=== PATIENT | female | born 1960 | race Caucasian/White ===

== ENCOUNTER 2019-01-10 16:04 | Inpatient (IN) | payer OTHER ==
[~2019-01-10] VITALS: Ht 170.2 cm; Wt 135.2 kg
[~2019-01-10 16:04] MED LIST: ASPIR 8181 MG PO; AZITHROMYCIN 2250 MG PO; CARDIZEM CD120 MG PO; CELEBREX; DELTASONE20 MG PO; DUONEB 2.5-0.5 M3 ML INH; ELIQUIS5 MG PO; FLECAINIDE ACET50 M1 PO; GENTAK 3 MG/M3 MG/M1 OP; GLUCOPHAGE XR500 MG PO; METFORMIN HCL500 MG PO; NEBULIZER MISCELL; PERCOCET 5-3251 EACH PO; PREDNISONE50 MG PO; SORINE 80 MG TA80 MG PO; VICODIN
[2019-01-10 16:56] VITALS: BP 146/81
[2019-01-10 17:44] LABS: ABSOLUTE NEUTROPHILS 9.2 thou/uL (1.4-8.2); BASOPHILS 0.7 % (0.0-2.0); HEMATOCRIT 44.4 % (37.0-47.0); HEMOGLOBIN 14.7 gm/dL (12.0-15.0); MCHC 33.1 g/dL (28.0-37.0); MCV 87.7 fL (80.0-100.0); MONOCYTES 5.8 % (1.0-8.0); PLATELET COUNT 255 thou/uL (150-400); POLYS 63.5 % (36.0-66.0); RBC 5.06 mil/uL (4.20-5.00); RDW 13.5 % (10.5-14.5); WBC 14.5 thou/uL (4.0-11.0)
--- NOTE | 2019-01-10 17:53 | NUR ---
PT A DIRECT PATIENT FROM DR. THOMPSON OFFICE. DR. CROWLEY NOTIFIED. ADMISSION HX AND ASSESSMENT COMPLETED. VSS. PT ALERT AND ORIENTED. ORDERS NOTED. ORIENTED TO THE ROOM AND THE CALL LIGHT SYSTEM. NO CONCERNS AT THIS TIME. WILL CONTINUE TO MONITOR.
[2019-01-10 17:58] LABS: ALBUMIN 3.5 g/dL (3.4-5.0); CREATININE 0.8 mg/dL (0.6-1.0); MAGNESIUM 1.9 mg/dL (1.8-2.4); POTASSIUM 3.8 mmol/L (3.5-5.1); TOTAL BILIRUBIN 0.6 mg/dL (<0.1-1.0); TOTAL PROTEIN 7.7 g/dL (6.4-8.2)
[2019-01-10 20:08] VITALS: BP 116/77
[2019-01-10 20:18] VITALS: BP 161/64
[2019-01-10 23:00] VITALS: BP 102/77
[2019-01-11 00:26] VITALS: BP 115/63
[2019-01-11 04:16] VITALS: BP 111/78
--- NOTE | 2019-01-11 05:05 | NUR ---
ASSESSMENT DOCUMENTED.PT BEEN RESTING IN NO ACUTE DISTRESS.VSS/A/OX4.PT STARTED ON CARDIZEM DRIP DUE TO HR BEING IN 130S AND SUSTAINING EVEN AFTER BEING GIVEN SOTALOL ORDERED.CARDIZEM INFUSING AT 5MG/HR AT THIS TIME.VSS.POC TO HAVE TALI W/ABLATION TODAY.WILL CONT TO MONITOR PER POC.
--- NOTE | 2019-01-11 09:23 | TEE ---
[facility] [address] [place] [address] TRANSESOPHAGEAL ECHOCARDIOGRAM Name: CRISTAL BECK Room #: 217-P [facility] IN .R.#: [id number] Admission: 01/10/19 Attend Phys: Angus Terrazas Discharge: Date of : 62 Report #: [id number] THIS REPORT FOR: //name// APPROVED REPORT Study performed: 01/11/2019 07:56:19 EXAM: Transesophageal Echocardiogram with Doppler and Cardioversion Patient Location: landscaping and groundskeeping laborer holding Room #: 9 Status: routine BSA: 2.39 HR: 89 bpm BP: 105/67 mmHg Rhythm: Atrial Fibrillation Other Information Study Quality: Excellent Indications Atrial Fibrillation Echo Enhancing Agent Indication: Rule out Shunt Agent(s) / Amount(s) Used: Agitated Saline 7 cc Procedure After obtaining informed consent, patient underwent transesophageal echo in the Biological Science Technician Fish Holding. Type of Sedation : Conscious Sedation Sedation was administered by Nurse. Sedation was achieved intravenously with: Versed (5 mg) Fentanyl (150 mcg) Transesophageal probe was inserted and advanced into esophagus without difficulty by Laurent Ga MD. Echo enhancement indication: R/O Septal defect. Echo enhancement agent administered: Agitated Saline The TALI was performed without complications. Synchronized Cardioversion acheived with 200 Joules after 1 attempt(s). Rhythm following Synchronized Cardioversion: Normal Sinus Rhythm Throughout the procedure, the blood pressure, pulse oximetry, cardiac rhythm, and rate were monitored. The patient tolerated the procedure without adverse effects. Recovery [facility] [address] [place] [address] TRANSESOPHAGEAL ECHOCARDIOGRAM Name: CRISTAL BECK Room #: 217-P [facility] IN M.R.#: [id number] Admission: 01/10/19 Attend Phys: Angus Terrazas Discharge: Date of : 62 Report #: [id number] from conscious sedation was uneventful and vital signs were stable. Left Ventricle The left ventricle is normal size. There is normal LV segmental wall motion. There is normal left ventricular wall thickness. The left ventricular systolic function is normal. The left ventricular ejection fraction is within the normal range. LVEF is 55-60%. Right Ventricle The right ventricle is normal size. The right ventricular systolic function is normal. Atria Left atrium is dilated. No thrombus is visualized in the left atrium or appendage. Patent foramen ovale is present with bidirectional shunting Right atrium is dilated. Aortic Valve The aortic valve is normal in structure. No aortic regurgitation is present. There is no aortic valvular stenosis. Mitral Valve The mitral valve is normal in structure. Mild mitral regurgitation. No evidence of mitral valve stenosis. Tricuspid Valve The tricuspid valve is normal in structure. Mild tricuspid regurgitation. Pulmonic Valve The pulmonary valve is normal in structure. There is no pulmonic valvular regurgitation. Great Vessels The aortic root is normal in size. The ascending aorta is normal in size. IVC is normal in size and collapses >50% with inspiration. Pericardium There is no pericardial effusion. <Conclusion> The left ventricular systolic function is normal. There is normal LV segmental wall motion. LVEF is 55-60%. [facility] [address] [place] [address] TRANSESOPHAGEAL ECHOCARDIOGRAM Name: CRISTAL BECK Room #: 217-P [facility] IN ..#: [id number] Admission: 01/10/19 Attend Phys: Angus Terrazas Discharge: Date of : 62 Report #: [id number] Both atria are severely dilated. No thrombus is visualized in the left atrium or appendage. Patent foramen ovale is present with bidirectional shunting The aortic valve is normal in structure. No aortic regurgitation or stenosis The mitral valve is normal in structure. Mild mitral regurgitation. There is no pericardial effusion. Successful cardioversion of atrial fibrillation to sinus rhythm following a single biphasic 200 J synchronous shock <ELECTRONICALLY SIGNED> By: Laurent Ga MD, FACC 01/11/19922 2 2 Laurent Ga MD, FACC /INF
--- NOTE | 2019-01-11 09:28 | NUR ---
PT AWAKE AND ALERT. TAKING SIPS OF WATER WITHOUT DIFFICULTIES. CONTINUES IN NSR. CARDIZEM DRIP STOPPED AFTER SUCCESSFUL CARDIOVERSION PER OK BY DR. ROMANO.
--- NOTE | 2019-01-11 10:47 | NUR ---
0940-REPORT CALLED TO CCU NURSE. INSTRUCTED TO START PRADAXA 150MG TODAY AND MAKE SURE SHE GETS 2 DOSES TODAY. INSTRUCTED TO CONTINUE WITH SOTALOL. SHE VERBALIZED UNDERSTANDING. PT TRANSFERRED BACK TO CCU VIA COT.
[2019-01-11 12:00] VITALS: BP 103/61
[2019-01-11 14:55] LABS: URINE BILIRUBIN NEGATIVE (Negative); URINE BLOOD NEGATIVE (Negative); URINE CLARITY CLEAR; URINE COLOR YELLOW; URINE GLUCOSE-RANDOM* NEGATIVE (Negative); URINE KETONES NEGATIVE (Negative); URINE LEUKOCYTES NEGATIVE (Negative); URINE NITRITE NEGATIVE (Negative); URINE PROTEIN (DIPSTICK) NEGATIVE (Negative); URINE SPECIFIC GRAVITY >= 1.030 (1.005-1.035); URINE UROBILINOGEN 0.2 E.U./dl (0.2-1.0)
[2019-01-11 16:00] VITALS: BP 110/74
--- NOTE | 2019-01-11 17:24 | NUR ---
ASSESSMENT CHARTED. PT ALERT AND ORIENTED. VSS. DENIED HAVING PAIN OR DISCOMFORT. HAD TALI THIS MORNING. NSR ON TELE. NO CONCERNS AT THIS TIME. WILL CONTINUE TO MONITOR.
[2019-01-11 20:13] VITALS: BP 121/55
[2019-01-12 00:14] VITALS: BP 138/53
--- NOTE | 2019-01-12 01:59 | NUR ---
PATIENTS CARES WAS ASSUMED AT SHIFT CHANGE. PATIENT WAS ASSESSED AND MEDS WERE PASSED. WHILE I WAS VISITING WITH THIS PATIENT. THE CONVERSATION WAS ABOUT HER WANTING A GASTRIC BYPASS. SHE IS PRESNTLY DOING CLASSES WITH DOCTOR CHEIKH M.D. AND HIS GROUP AT [facility]. WE ALSO TALKED ABOUT HORMONE REPLACEMEN. WILL PULL INFORMATION AND GIVE IT TO THE PATIENT.HOURLY ROUNDING WAS DONE AND THE BED IS IN A LOW AND LOWED POSITION
[2019-01-12 03:13] VITALS: BP 120/67
[2019-01-12 04:05] LABS: HEMATOCRIT 38.7 % (37.0-47.0); MCH 29.1 pg (26.0-34.0); MCHC 32.6 g/dL (28.0-37.0); MCV 89.3 fL (80.0-100.0); RBC 4.34 mil/uL (4.20-5.00); RDW 13.9 % (10.5-14.5); WBC 13.5 thou/uL (4.0-11.0)
[2019-01-12 04:19] LABS: HEMOGLOBIN 12.6 gm/dL (12.0-15.0)
[2019-01-12 07:30] VITALS: BP 126/65
[2019-01-12] MEDS ORDERED: SORINE 80 MG TA80 M1 PO (08:29)
[2019-01-12] MEDS ORDERED: PRADAXA150 MG PO (08:29)
--- NOTE | 2019-01-12 09:15 | EKG ---
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: Gilmer RUSSELL : 1960 Requested By: Vaughn Green Order Number: [id number] MD: Laurent Ga Measurements Intervals [place] Rate: 59 P: 58 CA: 159 QRS: 59 QRSD: 98 T: 78 QT: 624 QTc: 619 Interpretive Statements Sinus bradycardia Borderline abnrm T, anterolateral leads Prolonged QT interval No previous ECG available for comparison Electronically Signed On 01-12-2019 9:15:29 UPHOLSTERY HANDLER by Laurent Ga [email or web address] <ELECTRONICALLY SIGNED> By: Laurent Ga MD, [facility] 01/12/19 0915 1158 1158 Laurent Ga MD, [facility] /EPI
--- NOTE | 2019-01-12 09:26 | EKG ---
[place] [address] [facility] [place] [address] ELECTROCARDIOGRAM REPORT Name: CRISTAL BECK Room #: 217-P ADM IN M.R.#: [id number] Admission: 01/10/19 Attend Phys: Angus Centeno Discharge: Date of : 62 Report #: [id number] THIS REPORT FOR: //name// [facility] Test Date: 2019-01-12 Test Time: 08:23:18 Pat Name: CRISTAL BECK Department: Room: 217 P Gender: F Computational Chemist: ELEN : 1960 Requested By: Vaughn Green Order Number: [id number] MD: Laurent Ga Measurements Intervals [place] Rate: 63 P: 53 OK: 156 QRS: 57 QRSD: 101 T: 54 QT: 423 QTc: 434 Interpretive Statements Sinus rhythm Nonspecific T wave abnormality No previous ECG available for comparison Electronically Signed On 01-12-2019 9:26:19 SET MAKING MACHINE OPERATOR by Laurent Ga [email or web address] <ELECTRONICALLY SIGNED> By: Laurent Ga MD, [facility] 01/12/19925 2 2 Laurent Ga MD, FACC /EPI
[2019-01-12 09:40] VITALS: BP 126/65
--- NOTE | 2019-01-12 10:51 | NUR ---
ASSUMED CARE AT 0700. PT A&OX4. CARDIOLOGY ROUNDED WELL HOSPITALIST AND D/C ORDERS GIVEN. IV REMOVED. PT GIVEN PRESCRIPTIONS WELL D/C PAPERWORK. PT STATES NO QUESTIONS AT THIS TIME.
== END 2019-01-12 11:27 | disposition home or self-care (01) | DRG 309 ==
LOC: 3N 16:04 → 2N 16:10 → ENTRNSPT 01-12 10:19 → EDTRNSPTSTS 01-12 10:30 → 2N 01-12 11:27
PROVIDERS: Nurse Practitioner; ADMIT Hospitalist
PROC: B24BZZ4 Ultrasonography of Heart with Aorta, Transesophageal (ICD-10-PCS; principal; 2019-01-11)
PROC: 5A2204Z Restoration of Cardiac Rhythm, Single (ICD-10-PCS; principal; 2019-01-11)
DX: I48.0 Paroxysmal atrial fibrillation (principal); Z68.42 Body mass index [BMI] 45.0-49.9, adult; G47.33 Obstructive sleep apnea (adult) (pediatric); J44.9 Chronic obstructive pulmonary disease, unspecified; M19.90 Unspecified osteoarthritis, unspecified site; G89.29 Other chronic pain; M54.9 Dorsalgia, unspecified; I27.20 Pulmonary hypertension, unspecified; R73.03 Prediabetes; I34.0 Nonrheumatic mitral (valve) insufficiency; E66.01 Morbid (severe) obesity due to excess calories; Z79.82 Long term (current) use of aspirin; Z90.710 Acquired absence of both cervix and uterus; Z90.49 Acquired absence of other specified parts of digestive tract; Z87.891 Personal history of nicotine dependence; Z79.899 Other long term (current) drug therapy
CPT/HCPCS: 10081; 10797

== ENCOUNTER → 2020-04-08 | Outpatient (CLI) | payer OTHER ==
[~2020-04-08] MED LIST changes: +PRADAXA150 MG PO; +SORINE 80 MG TA80 M1 PO
== END ==
LOC: SJCVC 11:46
PROVIDERS: ATTEND Internal Medicine Cardiovascular Disease
DX: R94.31 Abnormal electrocardiogram [ECG] [EKG] (principal); R00.1 Bradycardia, unspecified; I48.3 Typical atrial flutter; I48.0 Paroxysmal atrial fibrillation; G47.33 Obstructive sleep apnea (adult) (pediatric); I10 Essential (primary) hypertension; R73.03 Prediabetes; M81.0 Age-related osteoporosis without current pathological fracture; M06.9 Rheumatoid arthritis, unspecified; Z98.84 Bariatric surgery status; Z90.49 Acquired absence of other specified parts of digestive tract; Z90.710 Acquired absence of both cervix and uterus; Z98.890 Other specified postprocedural states; Z68.42 Body mass index [BMI] 45.0-49.9, adult; Z88.8 Allergy status to other drugs, medicaments and biological substances; Z79.899 Other long term (current) drug therapy; Z87.891 Personal history of nicotine dependence; Z82.49 Family history of ischemic heart disease and other diseases of the circulatory system

== ENCOUNTER → 2020-04-18 | Outpatient (CLI) | payer OTHER | LOC: LAB 07:59 | PROVIDERS: ATTEND Internal Medicine Cardiovascular Disease | DX: Z01.812 Encounter for preprocedural laboratory examination (principal); Z20.822 Contact with and (suspected) exposure to COVID-19 ==

== ENCOUNTER → 2020-04-18 | Outpatient (CLI) | payer OTHER ==
[~2020-04-18] MED LIST changes: +CELEBREX100 MG/1 C PO; +SOTALOL 120 MG120 M1 PO; +XARELTO20 MG PO
[2020-04-18 09:50] LABS: BASOPHILS 0.7 % (0.0-2.0); EOSINOPHILS 1.8 % (0.0-3.0); HEMATOCRIT 42.3 % (37.0-47.0); HEMOGLOBIN 13.9 gm/dL (12.0-15.0); LYMPHOCYTES 28.9 % (24.0-44.0); MCH 28.9 pg (26.0-34.0); MCHC 32.9 g/dL (28.0-37.0); MCV 87.7 fL (80.0-100.0); MONOCYTES 6.4 % (1.0-8.0); POLYS 62.2 % (36.0-66.0); RBC 4.82 mil/uL (4.20-5.00); RDW 13.8 % (10.5-14.5); WBC 9.6 thou/uL (4.0-11.0)
[2020-04-18 10:02] LABS: ALBUMIN 3.6 g/dL (3.4-5.0); CALCIUM 8.8 mg/dL (8.5-10.1); CREATININE 0.7 mg/dL (0.6-1.0); POTASSIUM 4.2 mmol/L (3.5-5.1); TOTAL BILIRUBIN 0.6 mg/dL (0.2-1.0); TOTAL PROTEIN 7.2 g/dL (6.4-8.2)
[2020-04-18 10:43] LABS: PLATELET COUNT 211 thou/uL (150-400)
== END ==
LOC: CAT 09:00
PROVIDERS: ATTEND Internal Medicine Cardiovascular Disease
DX: Z01.818 Encounter for other preprocedural examination (principal); I48.91 Unspecified atrial fibrillation; J84.10 Pulmonary fibrosis, unspecified; K76.89 Other specified diseases of liver; M47.814 Spondylosis without myelopathy or radiculopathy, thoracic region; M89.38 Hypertrophy of bone, other site; Z90.49 Acquired absence of other specified parts of digestive tract; Z88.8 Allergy status to other drugs, medicaments and biological substances

== ENCOUNTER 2020-04-23 06:27 | Observation (INO) | payer OTHER ==
[~2020-04-23] VITALS: Ht 170.2 cm; Wt 103.0 kg
[~2020-04-23 06:27] MED LIST changes: -CELEBREX100 MG/1 C PO; -SOTALOL 120 MG120 M1 PO; -XARELTO20 MG PO
[2020-04-23 07:34] LABS: ABSOLUTE NEUTROPHILS 4.1 thou/uL (1.4-8.2); BASOPHILS 0.5 % (0.0-2.0); EOSINOPHILS 2.7 % (0.0-3.0); HEMATOCRIT 41.8 % (37.0-47.0); HEMOGLOBIN 13.9 gm/dL (12.0-15.0); LYMPHOCYTES 31.7 % (24.0-44.0); MCH 28.9 pg (26.0-34.0); MCHC 33.3 g/dL (28.0-37.0); MCV 86.7 fL (80.0-100.0); MONOCYTES 9.8 % (1.0-8.0); POLYS 55.3 % (36.0-66.0); RBC 4.82 mil/uL (4.20-5.00); RDW 13.8 % (10.5-14.5); WBC 7.4 thou/uL (4.0-11.0)
[2020-04-23 07:35] VITALS: BP 149/89
[2020-04-23] MEDS ORDERED: SOTALOL 120 MG120 M1 PO ×2 (07:42)
[2020-04-23] MEDS ORDERED: XARELTO20 MG PO ×2 (07:43)
[2020-04-23] MEDS ORDERED: CELEBREX100 MG/1 C PO ×2 (07:44)
[2020-04-23 07:48] LABS: APTT 26.5 Seconds (24.5-32.8); PROTIME 11.4 Seconds (9.3-11.4)
[2020-04-23 07:51] LABS: CREATININE 0.8 mg/dL (0.6-1.0); POTASSIUM 3.7 mmol/L (3.5-5.1)
[2020-04-23 07:55] LABS: ALBUMIN 3.6 g/dL (3.4-5.0); TOTAL BILIRUBIN 0.6 mg/dL (0.2-1.0); TOTAL PROTEIN 7.4 g/dL (6.4-8.2)
[2020-04-23 08:56] LABS: PLATELET COUNT 194 thou/uL (150-400)
--- NOTE | 2020-04-23 13:51 | 2DMMODE ---
[address] [address] 2 D/M-MODE ECHOCARDIOGRAM Name: CRISTAL BECK Room #: REG ROSIO DiazBrodie#: [id number] Admission: 04/23/20 Attend Phys: Vaughn Green MD Discharge: Date of : 62 Report #: [id number] THIS REPORT FOR: cc: Carlota Mckeon Maggie M. DO Santiago, Patrick MD [facility] ~ APPROVED REPORT Study performed: 04/23/2020 13:26:16 EXAM: Limited 2D Echocardiogram Patient Location: Holding Status: stat BSA: 2.13 HR: 72 bpm BP: 149/89 mmHg Rhythm: NSR Other Information Study Quality: Good Indications Stat limited echo for chest pain status post Afib ablation. Rule out pericardial effusion. Left Ventricle The left ventricle is normal size. There is normal left ventricular wall thickness. Left ventricular systolic function is normal. LVEF is 50-55%. Right Ventricle The right ventricle is normal size. The right ventricular systolic function is normal. Atria Left atrium is dilated. The right atrium size is normal. Aortic Valve The aortic valve is normal in structure. Mitral Valve The mitral valve is normal in structure. Tricuspid Valve [address] [address] D/M-MODE ECHOCARDIOGRAM Name: CRISTAL BECK Room #: REG [facility]..#: [id number] Admission: 04/23/20 Attend Phys: Vaughn Green Discharge: Date of : 62 Report #: [id number] The tricuspid valve is normal in structure. Pericardium There is no pericardial effusion. <Conclusion> Normal left ventricular size/wall thickness Ejection fraction 55%, no obvious segmental wall motion abnormality Normal right ventricular size/function Mild left atrial enlargement Normal aortic/mitral/tricuspid valve structure No pericardial effusion <ELECTRONICALLY SIGNED> By: Stoney Joiner MD, FACC 04/23/20 1351 135 135 Stoney Joiner MD, FACC /INF
[2020-04-23 16:15] VITALS: BP 139/79
--- NOTE | 2020-04-23 17:43 | EKG ---
[address] [address] ELECTROCARDIOGRAM REPORT Name: CRISTAL BECK Room #: 214-[facility]#: [id number] Admission: 04/23/20 Attend Phys: Vaughn Green MD Discharge: Date of : 62 Report #: [id number] [facility] Test Date: 2020-04-23 Test Time: 13:08:35 Pat Name: CRISTAL BECK Department: Room: 214 Gender: F Engineering Supervisor: ANAYA : 1960 Requested By: Vaughn Green Order Number: [id number] MD: Vaughn Green Measurements Intervals [place] Rate: 70 P: 69 UT: 147 QRS: 52 QRSD: 107 T: 40 QT: 431 QTc: 466 Interpretive Statements Sinus rhythm Borderline low voltage, extremity leads Abnormal R-wave progression, late transition Compared to ECG 01/12/2019 08:23:18 T-wave abnormality no longer present Electronically Signed On 04-23-2020 17:43:30 TICKET TAKER by Vaughn Green [email or web address] <ELECTRONICALLY SIGNED> By: Vaughn Green MD 04/23/20 1743 1308 1308 Vaughn Green MD /EPI
--- NOTE | 2020-04-23 17:59 | NUR ---
PT ARRIVED TO THE UNIT AROUND 1600 ALL BELONGINGS WERE WITH THE PT AT THE TIME OF THE ARRIVAL. NO COMPLAINTS OF CHEST PAIN AT THE TIME BUT PT DID SAY THAT SHE WAS HAVING THE SHAKES AND SINCE BEEN HAVING THE SHAKES SINCE THE SURGERY. PT DID SAY THERE WAS A BIT OF CHEST TIGHTNESS BUT HAD SEEN THE PT AFTER THAT AND STATED THAT THAT WAS THE REASON WHY SHE IS BEING SEEN OVERNIGHT AT THE HOSPITAL. PT WAS GIVEN HYDROCODONE PRIOR TO ARRIVAL AND WAS GIVEN FOOD/ICE/PILLOW AND IS NOW RESTING COMFORTABLY. RN SIGNING OFF AT THIS TIME
[2020-04-23 20:11] VITALS: BP 130/83
[2020-04-24] VITALS: BP 125/79
--- NOTE | 2020-04-24 04:45 | NUR ---
PT IS ALERT AND ORIENTED X4. LUNGS ARE CLEAR ON ROOM AIR. PT SITING UP IN CHAIR . DID COMPLAIN OF HEADACHE LAST NIGHT SNACK GIVEN AND TYLENOL FOR HEADACHE REPORTED AND RESELOVED WITH INTERVENTIONS. RIGHT GROIN SITE IS CLEAN DRY AND INTACT NO HEMATOMA NOTED. ABDOMEN IS SOFT AND ROUND. BOWEL SOUNDS ACTIVE X4. WILL CONTINUE TO MONITOR AND ASSSESS PER NURSING. CALL LIGHT WITHIN REACH IF NEEDED ASISTANCE
[2020-04-24 07:30] VITALS: BP 101/50
[2020-04-24 11:33] VITALS: BP 101/50
--- NOTE | 2020-04-24 12:03 | NUR ---
PT DC AT 1155 HOME. PT WAS EDUCATED ON S/S OF BLEEDING/INFECTION FROM GROIN SITE. PT PROGRESSED TOWARDS POC.
--- NOTE | 2020-04-25 12:53 | P ---
[facility] [place] [address] PROCEDURE REPORT Name: CRISTAL BECK Room #: 214-P [facility] Neal Singh#: [id number] Admission: 04/23/20 Attend Phys: Vaughn Green MD Discharge: 04/24/20 Date of : 62 Report #: [id number] THIS REPORT FOR: cc: Carlota Mckeon Maggie M. DO Couchonnal, Luis F. MD ~ DATE OF SERVICE: 04/23/2020 ATRIAL FIBRILLATION AND ATRIAL FLUTTER ABLATION PREOPERATIVE DIAGNOSES: 1. Paroxysmal atrial fibrillation. 2. Typical atrial flutter. POSTOPERATIVE DIAGNOSES: 1. Paroxysmal atrial fibrillation. 2. Typical atrial flutter. PROCEDURES PERFORMED: 1. Atrial fibrillation ablation, CPT code 65350. 2. 3D mapping, CPT code 42035. 3. Intracardiac echo, CPT code 44964. 4. Second pathway ablation for atrial flutter, CPT code 04452. HISTORY: The patient is a 60-year-old female with a history of atrial fibrillation, status post ablation back in 2009 at an outside hospital as well as obesity, status post gastric bypass surgery, who has had continued AFib despite antiarrhythmic drug therapy and is here for an ablation. ANESTHESIA: The patient underwent general anesthesia with no anesthesia related complications. DESCRIPTION OF PROCEDURE: The patient underwent informed consent. We discussed the details of the procedure including the risks, which include but not limited to bleeding, vascular damage, stroke, [place], cardiac perforation. She understood these risks and is willing to proceed. DESCRIPTION OF PROCEDURE: The patient was brought to the EP laboratory in a fasting nonsedated state, prepped and draped in a sterile fashion. I obtained access of the right femoral vein x3, placing ____ short sheath using the modified Seldinger technique and under fluoroscopy, I placed a decapolar catheter easily in the coronary sinus and an ICE catheter into the right atrium. At baseline, the patient was in sinus rhythm. She had evidence of 2 right, 2 left pulmonary veins. A 3D geometry using [employer] was created and this was merged with the patient's cardiac CT scan. Next, the patient was systemically [facility] [address] [place] [address] PROCEDURE REPORT Name: CRISTAL BECK Room #: [address] [place] [address].#: [id number] Admission: 04/23/20 Attend Phys: Vaughn Green MD Discharge: 04/24/20 Date of : 62 Report #: [id number] heparinized and a transseptal was performed using an SL1 sheath and a [place] needle. This was straightforward and I exchanged for the cryo sheath. Via the cryo sheath, I placed the Lasso catheter into the left atrium and created a detailed 3D geometry of the left atrium. The patient had persistent isolation of the two left veins, but the two right veins had reconnected. Of note, her left inferior pulmonary vein was small in caliber and I could not advance the Lasso into this blood vessel. Next, I placed the cryoballoon into the left atrium and we started by performing ablation around the left-sided veins to widen the area of prior isolation and also to take care of any ganglionic plexi along these veins. The left superior pulmonary vein underwent a 4-minute, followed by 3-minute freeze. The left inferior pulmonary vein underwent a 4-minute and 3-minute freeze. Of note, I was able to get the sheath into this vessel prior to ablation at this point. I then turned my attention to the right superior pulmonary vein and performed a 4-minute freeze by 110 second freeze. During the second freeze, the vein was isolated within 29 seconds and there was some slight phrenic nerve weakening, so we came off and this returned to normal. The right inferior pulmonary vein underwent a 4-minute freeze and isolated ____. Next, all veins were re-interrogated and found to be isolated. Again, difficult to get the Achieve into the distal left inferior pulmonary vein due to its size and angulation. ATRIAL FLUTTER ABLATION: Given the patient's history of atrial flutter, we proceeded to the right atrium ____. I used a CartoSound to draw a line at the ____ milliseconds. Ablation was then performed using ____. I performed additional ablation along the posterior aspect of the very long isthmus ____ block. As such, the procedure was concluded. The patient's ____. There was no pericardial effusion. The patient then received systemic protamine and once ACT was within acceptable range, catheters and sheaths were pulled and hemostasis was obtained. The patient awoke neurologically and hemodynamically intact with no complications and no significant bleeding. CONCLUSIONS: 1. Successful AFib ablation with re-isolation of the pulmonary veins. 2. Successful atrial flutter ablation with evidence of bidirectional block. <ELECTRONICALLY SIGNED> By: Vaughn Green MD 04/25/20 1253 1201 1307 Vaughn Green MD /nt
== END 2020-04-24 11:57 | disposition home or self-care (01) ==
LOC: CATH 06:27 → 2N 16:10 → CATH 16:12 → 2N 16:13
PROVIDERS: ADMIT Internal Medicine Cardiovascular Disease; ATTEND Internal Medicine Cardiovascular Disease
DX: I48.0 Paroxysmal atrial fibrillation (principal); I48.92 Unspecified atrial flutter; G47.33 Obstructive sleep apnea (adult) (pediatric); E66.9 Obesity, unspecified; I10 Essential (primary) hypertension; E11.9 Type 2 diabetes mellitus without complications; M54.16 Radiculopathy, lumbar region; Z79.01 Long term (current) use of anticoagulants; Z79.899 Other long term (current) drug therapy; Z68.42 Body mass index [BMI] 45.0-49.9, adult
CPT/HCPCS: 62110; 62900; 65020; 65040; 70005

== ENCOUNTER → 2020-07-24 | Outpatient (CLI) | payer OTHER ==
[~2020-07-24] MED LIST changes: +CELEBREX100 MG/1 C PO; +SOTALOL 120 MG120 M1 PO; +TYLENOL EXTRA500 MG PO; +XARELTO20 MG PO
--- NOTE | ~2020-07-24 | P ---
[facility] [place] [address] PROCEDURE REPORT Name: CRISTAL BECK Room #: REG Lia Singh#: [id number] Admission: 07/24/20 Attend Phys: Vaughn Green MD Discharge: Date of : 62 Report #: [id number] THIS REPORT FOR: cc: Carlota Mckeon Maggie M. DO Couchonnal, Luis F. MD ~ DOC #: [id number] Vaughn Green MD DATE OF SERVICE: 07/24/2020 PREOPERATIVE DIAGNOSIS: Palpitations. POSTOPERATIVE DIAGNOSIS: Palpitations. DESCRIPTION OF PROCEDURE: The patient underwent informed consent. She was prepped and draped in a standard fashion. I injected lidocaine at the incision site. Incision was made. Device was injected under the skin, tested and found to be functioning normally. Single layer of suture was performed. A dressing was placed. The patient awoke neurologically and hemodynamically intact. No complications. No significant bleeding. CONCLUSIONS: Successful implantation of a [employer] implantable loop recorder. MD PRE[place]ON [place]/DEMETRIS By: 0916 11 Vaughn Green MD /nt
[2020-07-24 07:40] VITALS: BP 121/70
== END | disposition home or self-care (01) ==
LOC: CATH 07:07
PROVIDERS: ATTEND Internal Medicine Cardiovascular Disease
DX: R00.2 Palpitations (principal); I10 Essential (primary) hypertension; I48.91 Unspecified atrial fibrillation; G47.33 Obstructive sleep apnea (adult) (pediatric); Z98.890 Other specified postprocedural states; Z79.899 Other long term (current) drug therapy; Z79.01 Long term (current) use of anticoagulants

== ENCOUNTER 2020-11-05 17:31 | Observation (INO) | payer OTHER ==
[~2020-11-05] VITALS: Ht 170.2 cm; Wt 111.2 kg
[2020-11-05 07:25] VITALS: BP 105/69
[2020-11-05 07:29] LABS: HEMATOCRIT 42.7 % (37.0-47.0); HEMOGLOBIN 14.3 gm/dL (12.0-15.0); MCH 29.3 pg (26.0-34.0); MCHC 33.4 g/dL (28.0-37.0); MCV 87.8 fL (80.0-100.0); RBC 4.86 mil/uL (4.20-5.00); RDW 13.5 % (10.5-14.5); WBC 9.4 thou/uL (4.0-11.0)
[2020-11-05 07:40] LABS: CALCIUM 9.3 mg/dL (8.5-10.1); CREATININE 0.8 mg/dL (0.6-1.0); POTASSIUM 3.8 mmol/L (3.5-5.1)
[2020-11-05 07:44] LABS: INR 0.97; PROTIME 10.6 Seconds (10.5-12.1)
[2020-11-05 07:46] LABS: ALBUMIN 3.8 g/dL (3.4-5.0); TOTAL BILIRUBIN 0.6 mg/dL (0.2-1.0); TOTAL PROTEIN 7.9 g/dL (6.4-8.2)
[2020-11-05 16:43] VITALS: BP 141/83
[2020-11-05 17:12] VITALS: BP 141/83
--- NOTE | 2020-11-05 18:52 | NUR ---
PT IS AXOX4, PLEASANT. VSS, AFEBRILE, SR ON THE MONITOR. PT CAME INTO COMMERCIAL CREDIT ANALYST FOR AFIB ABLATION. PT ARRIVED TO FLOOR, BEDREST ALREADY COMPLETED. R GROIN C/D/I, NO HEMATOMA, SOME BRUISING. PT C/O HEADACHE, DENIES CHEST PAIN. POC IS TO CONTINUE TO MONITOR GROIN SITE. POSS D/C 11/06/20. LOW FALL PRECAUTIONS IN PLACE. NO CONCERNS AT THIS TIME.
[2020-11-05 19:58] VITALS: BP 147/88
[2020-11-06 00:10] VITALS: BP 143/82
[2020-11-06 04:42] VITALS: BP 142/82
--- NOTE | 2020-11-06 07:11 | NUR ---
PT RESTING QUIETLY IN ROOM, NO C/O PAIN, VSS, RIGHT GROIN REMAINS CDI, UP AMBULATING IN ROOM, HOPES TO GO HOME IN AM, WILL CON'T TO MONITOR PER PPOC.
[2020-11-06 08:10] VITALS: BP 124/75
[2020-11-06 09:28] VITALS: BP 124/75
--- NOTE | 2020-11-06 10:09 | NUR ---
Assumed care of pt this AM. Pt is A&O x4, ready to go home. SR on the monitor, RA. Pt is up ad chapito. PRN tylenol given for generalized pain. Plans to discharge today with cardio approval.
--- NOTE | 2020-11-06 10:58 | NUR ---
DISCHARGE NOTE: tele & IV discontinued. Discharge education provided to pt, answered any questions. Forms signed & in chart. Pt wheeled to [facility] entrace by nurse to leave via daughter's car.
[2020-11-06 10:59] VITALS: BP 124/75
--- NOTE | 2020-11-10 11:30 | P ---
[facility] [place] [address] PROCEDURE REPORT Name: CRISTAL BECK Room #: 206-P [facility] Neal Singh#: [id number] Admission: 11/05/20 Attend Phys: Vaughn Green MD Discharge: 11/06/20 Date of : 62 Report #: [id number] THIS REPORT FOR: cc: Carlota Mckeon Maggie M. DO Couchonnal, Luis F. MD ~ DATE OF SERVICE: 11/05/2020 PREOPERATIVE DIAGNOSES: 1. Atrial fibrillation. 2. Atrial flutter. POSTOPERATIVE DIAGNOSES: 1. Atrial fibrillation. 2. Atrial flutter. PROCEDURE PERFORMED: 1. Atrial fibrillation ablation, CPT code 98144. 2. 3D mapping, CPT code 55169. 3. Intracardiac echo, CPT code 16564. 4. Focal ablation, CPT code 46803. 5. Second pathway ablation, CPT code 39534. HISTORY: The patient is a 60-year-old female with a history of atrial fibrillation and atrial flutter, had prior ablation at an outside hospital. She had an ablation with mi where I re-isolated her pulmonary veins and performed an atrial flutter ablation. She has had an implantable loop recorder that shows that she continues to have frequent episodes of atrial fibrillation and atrial flutter. She is here for repeat ablation. ANESTHESIA: The patient underwent general anesthesia with no anesthesia related complications. DESCRIPTION OF PROCEDURE: The patient underwent informed consent. We discussed the details of the procedure including the risks, which include but not limited to bleeding, infection, vascular damage, cardiac perforation, stroke, and PA. She understood these risks and is willing to proceed. The patient was brought to the EP laboratory in a fasting and sedated state, prepped and draped in a sterile fashion. In the preoperative holding area, she appeared to be in atrial flutter with rates in the 140s to 160s. However, by the time I was starting, she had converted back to sinus rhythm. I obtained access to the right femoral vein x3, placing an 8, 9, and 7-Egyptian short sheath using the modified Seldinger technique. Next, a decapolar catheter was placed into the coronary sinus and ICE catheter was placed in the right atrium. Using CartoSound, 3D geometry of the left atrium was created with evidence of 2 left and 2 right pulmonary veins. [address] [address] PROCEDURE REPORT Name: CRISTAL BECK Room #: 206-P [facility] Neal M.RBrodie#: [id number] Admission: 11/05/20 Attend Phys: Vaughn Green MD Discharge: 11/06/20 Date of : 62 Report #: [id number] Next, the patient was systemically heparinized and a transseptal was performed using an Agilis and Hartley needle. This was straightforward and then I placed the PentaRay catheter into the left atrium and created a voltage map. This showed that all 4 pulmonary veins were isolated and there was significant scarring along the posterior wall. Next, we started by isolating the posterior wall. I performed a roof line and performed an inferior line connecting the right inferior to the left inferior pulmonary veins. Esophageal temperatures were closely monitored near the esophagus and these were all within stable range. Next, I performed a mitral annular line connecting the left inferior pulmonary vein to the mitral annulus. Ablation was continued until there was evidence of block along this line. Next, a repeat voltage map was created and this showed that all veins were isolated. There was block along the mitral annulus and the posterior wall was now isolated. Next, a basic EP study was performed. Atrial burst pacing was performed. AV block was noted at 350 milliseconds. A single atrial extrastimuli were delivered and AV nima ERP was noted at 220 milliseconds and [address] cycle length. Atrial burst pacing was performed down to 240 milliseconds and this induced atrial flutter with a proximal and distal activation along the CS and a cycle length of 250 milliseconds. I attempted to map this, but this terminated after 2 minutes. Therefore, I went to the right atrium and created a repeat voltage map of the right atrium and this showed that there was a reconnection along the prior CTI line, which I performed. Transisthmus conduction time was around 130 milliseconds. Therefore, ablation for CTI flutter was performed again. There was just a small gap along the mid third of the isthmus where there was still some sharp electrograms. Ablation was performed here at 40 flowers. Once there was no further signals, testing was again performed and the transisthmus conduction time was now 160 milliseconds with evidence of bidirectional block. As such, the procedure was concluded. Using intracardiac ultrasound, there is no evidence of pericardial effusion. The patient received systemic protamine and once ACT was at acceptable range, catheters and sheaths were pulled. Hemostasis was obtained. CONCLUSION: 1. Successful atrial fibrillation ablation with isolation of the posterior wall. 2. Successful mitral annular line creation. [facility] [address] [place] [address] PROCEDURE REPORT Name: CRISTAL BECK Room #: 206-P [facility] Neal Singh#: [id number] Admission: 11/05/20 Attend Phys: Vaughn Green MD Discharge: 11/06/20 Date of : 62 Report #: [id number] 3. Successful right-sided atrial flutter ablation with evidence of bidirectional block. <ELECTRONICALLY SIGNED> By: Vaughn Green MD 11/10/20 1130 [id number] Vaughn Green MD /nt
== END 2020-11-06 11:02 | disposition home or self-care (01) ==
LOC: 2N 17:31 → CATH 17:31 → 2N 17:32
PROVIDERS: ADMIT Internal Medicine Cardiovascular Disease; ATTEND Internal Medicine Cardiovascular Disease
DX: I48.0 Paroxysmal atrial fibrillation (principal); I48.92 Unspecified atrial flutter; Z20.822 Contact with and (suspected) exposure to COVID-19; E11.9 Type 2 diabetes mellitus without complications; I10 Essential (primary) hypertension; G47.33 Obstructive sleep apnea (adult) (pediatric); R12 Heartburn; E66.9 Obesity, unspecified; Z68.43 Body mass index [BMI] 50.0-59.9, adult; Z88.5 Allergy status to narcotic agent
CPT/HCPCS: 62110; 62900; 70005